=== PATIENT | female | born 1965 | race Caucasian/White ===

== ENCOUNTER 2017-02-18 13:14 | Emergency (ER) | payer BC, OTHER ==
[2017-02-18 13:18] VITALS: BP 130/69; PULSE 88; TEMP 98.2; BMI 31.1
--- NOTE | 2017-02-18 13:49 | PDOC ---
History of Present Illness - General Chief Complaint: Back Pain Stated Complaint: BACK PAIN Time Seen by Provider: 02/18/17 13:47 History Source: Patient Exam Limitations: No Limitations - History of Present Illness Initial Comments: 02/18/17 14:23 Chief complaint: Lower back pain History of present illness: Patient is a 51-year-old female with a history of gastric ulcers here today complaining of worsening lower back pain that started on 02/15/2017 and has worsened. Patient reports that she went to [facility] on was given Tylenol which has not helped with pain. Patient denies doing any heavy lifting or any strenuous activities that might have caused her back pain. 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 Patient reports that pain is worse when walking or getting up from a seated or lying position. It is improved with sitting still. Patient has not taken anything for pain today. Patient reports the pain is a aching sensation in lower back with no radiation down legs or any incontinency or any saddle anesthesia. She denies any urinary symptoms of hematuria, frequency or urgency or dysuria. She reports the pain is an 8 out of 10 when getting up from seated or lying position. 02/18/17 23:08 Occurred: reports: other (4 days ) Severity: reports: moderate Pain Location: reports: back (lower ) Method of Injury: Yes: unknown Modifying Factors: improves with: immobilization Loss of Consciousness: no loss of consciousness Associated Symptoms (Fall): muscle spasms (lower back when getting up from a seated position or lying), trouble walking Past History - Past Medical History Allergies/Adverse Reactions: Allergies Allergy/AdvReac Type Severity Reaction Status Date / Time cimetidine [From Tagamet] Allergy Swelling Verified 02/18/17 13:18 cimetidine HCl [From Tagamet] Allergy Swelling Verified 02/18/17 13:18 Home Medications: Ambulatory Orders Pantoprazole Sodium [Protonix] 40 mg PO DAILY #30 tablet. 05/19/16 Acetaminophen [Tylenol .Extra-Strength -] 1,000 mg PO Q12H PRN #14 tablet Cyclobenzaprine HCl [Flexeril 10 mg] 10 mg PO Q8H PRN #21 tablet 02/18/17 Oxycodone HCl/Acetaminophen [Percocet 5-325 mg Tablet] 1 tab PO Q8H PRN #6 tablet MDD 3 02/18/17 Asthma: Yes GI Disorders: Yes (hep c) Suicide Attempt (Hx): No - Immunization History Immunization Up to Date: Yes - Psycho/Social/Smoking Cessation Hx Anxiety: No Suicidal Ideation: No Smoking History: Never smoked Have you smoked in the past 12 months: No Information on smoking cessation initiated: No Hx Alcohol Use: No Drug/Substance Use Hx: No Substance Use Type: None Review of Systems - Review of Systems Able to Perform ROS?: Yes Constitutional: No: Symptoms Reported HEENTM: No: Symptoms Reported Respiratory: No: Symptoms reported Cardiac (ROS): No: Symptoms Reported ABD/GI: No: Symptoms Reported : No: Symptoms Reported Musculoskeletal: Yes: Back Pain (b/l lumbar) Integumentary: No: Symptoms Reported Neurological: No: Symptoms reported *Physical Exam - Vital Signs Last Vital Signs Temp Pulse Resp BP Pulse Ox 98.2 F 88 18 130/69 99 02/18/17 13:16 02/18/17 13:16 02/18/17 13:16 02/18/17 13:16 02/18/17 13:16 - Physical Exam General Appearance: Yes: Appropriately Dressed Respiratory/Chest: positive: Lungs Clear, Normal Breath Sounds. negative: Chest Tender, Respiratory Distress Cardiovascular: positive: Regular Rhythm, Regular Rate, S1, S2 Gastrointestinal/Abdominal: positive: Normal Bowel Sounds, Soft. negative: Tender, Organomegaly, Distended, Guarding, Rebound, Tenderness, Hepatomegaly, Spleenomegaly Musculoskeletal: positive: Normal Inspection, Muscle Spasm (b/l lumbar). negative: CVA Tenderness, CVA Tenderness (R), CVA Tenderness (L), Decreased Range of Motion (from waist), Vertebral Tenderness Extremity: positive: Normal Capillary Refill, Normal Inspection, Normal Range of Motion Neurologic: positive: Motor Strength 5/5 (legs b/l ), Respond to painful stimul (legs ), Responsive, Other (negative SLR b/ll ). negative: Numbness, Sensory Deficit Deep Tendon Reflexes: Ankle (L): 3+, Ankle (R): 3+, Knee (L): 4+, Knee (R): 4+ Medical Decision Making - Medical Decision Making 02/18/17 14:25 Patient is a 51-year-old female with a history of gastric ulcers here today complaining of worsening lower back pain that started on 02/15/2017 and has worsened. Patient reports that she went to [facility] on or 2016 was given Tylenol which has not helped with pain. Patient denies doing any heavy lifting or any strenuous activities that might have caused her back pain. 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 Patient reports that pain is worse when walking or getting up from a seated or lying position. It is improved with sitting still. Patient has not taken anything for pain today. Patient reports the pain is a aching sensation in lower back with no radiation down legs or any incontinency or any saddle anesthesia. She denies any urinary symptoms of hematuria, frequency or urgency or dysuria. She reports the pain is an 8 out of 10 when getting up from seated or lying position. Pt. is a driving Lower back pain with muscle spasm PLAN: toradol 60 mg IM xray lumbar/spinal no acute abnormality, no evidence of compression deformities , spondylithesis. Developmental changes are seen at L5 - S1. per Dr. Caraballo follow up with ortho cane given Flexeril 10 mg q 8 hr prn muscle spasm tylenol 1000 mg q 12 hr prn pain percocet 5mg/325 mg po every 8 hrs prn severe pain # 6 tabs 02/18/17 16:00 *DC/Admit/Observation/Transfer Diagnosis at time of Disposition: Low back pain Qualifiers: Chronicity: unspecified Back pain laterality: bilateral Sciatica presence: without sciatica Qualified Code(s): M54.5 - Low back pain - Discharge Dispostion Disposition: HOME Condition at time of disposition: Stable - Prescriptions Prescriptions: Cyclobenzaprine HCl [Flexeril 10 mg] 10 mg PO Q8H PRN #21 tablet PRN Reason: Muscle Spasms Oxycodone HCl/Acetaminophen [Percocet 5-325 mg Tablet] 1 tab PO Q8H PRN #6 tablet MDD 3 PRN Reason: Severe Pain Acetaminophen [Tylenol .Extra-Strength -] 1,000 mg PO Q12H PRN #14 tablet PRN Reason: Pain - Referrals Referrals: STAFF,NOT ON [Primary Care Provider] - Dalton Wolf MD [Staff Physician] - - Patient Instructions Additional Instructions: Avoid any strenuous activities or exercise Follow-up with orthopedist as soon as possible for further evaluation Use Cane for ambulation Return to emergency room if symptoms worsen any numbness of legs or groin or worsening pain Patient voiced understanding of discharge instructions - Post Discharge Activity Work/School Note: Back to Work
[2017-02-18] MEDS ORDERED: KETOROLAC TROMETHAMINE 60 MG/2 ML VIAL IM ONE (14:18)
[2017-02-18] MEDS ORDERED: KETOROLAC TROMETHAMINE 60 MG/2 ML VIAL ONE (14:21)
[2017-02-18 14:49] LABS: URINE APPEARANCE CLEAR; URINE BILIRUBIN NEGATIVE (NEGATIVE); URINE COLOR LTYELLOW; URINE GLUCOSE (UA) NEGATIVE (NEGATIVE); URINE KETONE NEGATIVE (NEGATIVE); URINE NITRITE NEGATIVE (NEGATIVE); URINE PROTEIN NEGATIVE (NEGATIVE); URINE UROBILINOGEN NEGATIVE E.U./dl (0.2-1.0)
[2017-02-18 14:53] LABS: URINE BLOOD 1+ (NEGATIVE); URINE LEUK ESTERASE TRACE (NEGATIVE)
[2017-02-18 15:12] LABS: URINE RBC 2 /hpf (0-3); URINE WBC 2 /hpf (3-5)
== END 2017-02-18 16:29 | disposition home or self-care (01) ==
LOC: JERFT 13:14
PROC: 3E0233Z Introduction of Anti-inflammatory into Muscle, Percutaneous Approach (ICD-10-PCS; principal; 2017-02-18)
DX: M54.5 Low back pain (principal); J45.909 Unspecified asthma, uncomplicated; B18.2 Chronic viral hepatitis C; Z87.19 Personal history of other diseases of the digestive system
CPT/HCPCS: 72100-TC; 81003; 81015; 99281-25

== ENCOUNTER 2017-04-24 10:12 | Emergency (ER) | payer BC, OTHER ==
[2017-04-24 10:24] VITALS: TEMP 98; BMI 28.9
--- NOTE | 2017-04-24 10:44 | PDOC ---
History of Present Illness - General History Source: Patient Exam Limitations: No Limitations - History of Present Illness Initial Comments: 04/24/17 10:45 Patient is a 51 yo F with PMH of gastric ulcers, asthma, Hep C, who presents epigastric pain, identical to her complaints on several prior recent visits. Patient states that she has an endoscopy a year ago that showed gastritis as an explanation for her long standing epigastric pain of several years. She was last prescribed maalox and protonix 40 po d a few mo ago but she ran out of the PPI 3 w ago. Since then, her abd pain worsened and she developed nausea with 2 episodes of NBNB vomiting yesterday. She also complains of one episode of watery, nonbloody, nonmelenous diarrhea yesterday. She has not f/u with her PCP or GI due to apt unavailability. She denies f/c, chest pain, h/a, sob, cough, hemoptysis, extremity pain or edema. She reports intentional weight loss of 12 lb over 5 mo. 04/24/17 12:16 04/24/17 12:24 04/24/17 12:33 04/24/17 12:56 <Tatyana Oseguera - Last Filed: 04/24/17 12:56> <Gricel Bryant - Last Filed: 04/24/17 13:43> - General Chief Complaint: Pain Stated Complaint: STOMACH PAIN Past History - Past Medical History Asthma: Yes GI Disorders: Yes (hep c/gastritis) Suicide Attempt (Hx): No - Immunization History Immunization Up to Date: Yes - Psycho/Social/Smoking Cessation Hx Anxiety: No Suicidal Ideation: No Smoking History: Never smoked Have you smoked in the past 12 months: No Information on smoking cessation initiated: No Hx Alcohol Use: No Drug/Substance Use Hx: No Substance Use Type: None <Tatyana Oseguera - Last Filed: 04/24/17 12:56> <Gricel Bryant - Last Filed: 04/24/17 13:43> - Past Medical History Allergies/Adverse Reactions: Allergies Allergy/AdvReac Type Severity Reaction Status Date / Time cimetidine [From Tagamet] Allergy Swelling Verified 04/24/17 10:21 cimetidine HCl [From Tagamet] Allergy Swelling Verified 04/24/17 10:21 Home Medications: Ambulatory Orders Pantoprazole Sodium [Protonix] 40 mg PO DAILY #30 tablet. 05/19/16 Review of Systems - Review of Systems Able to Perform ROS?: Yes Is the patient limited Slovenian proficient: No Constitutional: No: Chills, Fever HEENTM: No: Nose Congestion, Throat Pain Respiratory: No: Cough, Orthopnea, Shortness of Breath, Hemoptysis Cardiac (ROS): No: Chest Pain, Edema, Irregular Heart Rate, Lightheadedness, Palpitations, Syncope ABD/GI: Yes: Diarrhea, Nausea, Vomiting. No: Abdominal Distended, Difficulty Swallowing, Poor Fluid Intake, Rectal Bleeding, Abdominal cramping, Tarry Stools : No: Dysuria, Flank Pain Musculoskeletal: No: Back Pain, Joint Pain Integumentary: No: Bruising, Pruritus, Rash Neurological: No: Headache, Numbness, Paresthesia Psychiatric: No: Anxiety, Depression Endocrine: No: Unexplained Weight Loss Hematologic/Lymphatic: No: Anemia, Blood Clots, Easy Bleeding, Easy Bruising All Other Systems: Reviewed and Negative <Tatyana Oseguera - Last Filed: 04/24/17 12:56> *Physical Exam - Vital Signs Last Vital Signs Temp Pulse Resp BP Pulse Ox 98.0 F 75 18 130/77 100 04/24/17 10:22 04/24/17 10:22 04/24/17 10:22 04/24/17 10:22 04/24/17 10:22 - Physical Exam Comments: 04/24/17 12:24 General: mild distress, AAOx3 HEENT: atraumatic, normocephalic, perrla eomi, sclera anicteric, conjunctiva clear CV: RRR S1S2 Pulm: cta b/l GI: moderate epigastric pain, no guarding, no rebound, no mass, reduced bowel sounds. Extremities: no edema Neuro: CN II-XII grossly intact <Tatyana Oseguera - Last Filed: 04/24/17 12:56> - Vital Signs Last Vital Signs Temp Pulse Resp BP Pulse Ox 98.0 F 69 16 114/71 97 04/24/17 10:22 04/24/17 13:36 04/24/17 13:36 04/24/17 13:36 04/24/17 13:36 <Gricel Bryant - Last Filed: 04/24/17 13:43> Heart Score/ECG Review #1 General ECG Interpretation: Sinus Rhythm, Normal Rate, Normal Intervals, No acute ischemic changes <Tatyana Oseguera - Last Filed: 04/24/17 12:56> ED Treatment Course - LABORATORY CBC & Chemistry Diagram: 04/24/17 11:11 04/24/17 11:11 <Tatyana Oseguera - Last Filed: 04/24/17 12:56> - LABORATORY CBC & Chemistry Diagram: 04/24/17 11:11 04/24/17 11:11 - ADDITIONAL ORDERS Additional order review: Laboratory Results 04/24/17 04/24/17 04/24/17 11:11 11:11 11:11 Sodium 141 Potassium 4.0 Chloride 104 Carbon Dioxide 29 Anion Gap 8 BUN 15 D Creatinine 0.6 Creat Clearance w eGFR > 60 Random Glucose 108 H Calcium 9.4 Total Bilirubin 0.3 D AST 19 D ALT 23 Alkaline Phosphatase 101 Creatine Kinase 140 Troponin I < 0.02 Total Protein 8.4 H Albumin 4.1 Lipase 230 Serum , Qual Negative 04/24/17 11:11 RBC 5.21 H MCV 89.0 MCHC 33.5 RDW 13.5 MPV 8.0 Neutrophils % 80.1 Lymphocytes % 14.9 D Monocytes % 4.3 Eosinophils % 0.3 Basophils % 0.4 - Medications Given in the ED: ED Medications Discontinued Medications Generic Name Dose Route Start Last Admin Trade Name Freq PRN Reason Stop Dose Admin Al Hydroxide/Mg Hydroxide 30 ml 04/24/17 10:59 04/24/17 11:43 Mylanta Oral Suspension - PO 04/24/17 11:00 30 ml ONCE ONE Administration Pantoprazole Sodium 40 mg/ 100 mls @ 200 mls/hr 04/24/17 10:59 04/24/17 11:44 Sodium Chloride IVPB 04/24/17 11:28 200 mls/hr ONCE ONE Administration Ondansetron HCl 4 mg 04/24/17 10:59 04/24/17 11:44 Zofran Injection IVPUSH 04/24/17 11:00 4 mg ONCE ONE Administration <Gricel Bryant - Last Filed: 04/24/17 13:43> Medical Decision Making - Medical Decision Making 04/24/17 12:28 Patient presents with clinical picture most consistent with gastritis exacerbation due to cessation of PPI therapy r/o infection, ulcer perforation abscess, acs, other intraabdominal pathology EKG, cbc diff, cmp, lipase, serum , cxr -EKG unremarkable. -labs unremarkable - negative 04/24/17 12:29 04/24/17 12:56 CXR unremarkable patient stable for d/c. ppi prescribed. urged to follow up with PCP and GI ramses , especially before prescription runs out <Tatyana Oseguera - Last Filed: 04/24/17 12:56> *DC/Admit/Observation/Transfer - Discharge Dispostion Admit: No <Tatyana Oseguera - Last Filed: 04/24/17 12:56> <Gricel Bryant - Last Filed: 04/24/17 13:43> Diagnosis at time of Disposition: Gastritis - Discharge Dispostion Disposition: HOME Condition at time of disposition: Good - Referrals Referrals: Cornelio Doe MD [Staff Physician] - - Patient Instructions Printed Discharge Instructions: Gastritis Additional Instructions: your stomach pain is caused by gastritis. We prescribed you a month supply of protonix. 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 Return to ER if symptoms worsen. - Post Discharge Activity Work/School Note: Back to Work
[2017-04-24] MEDS ORDERED: PANTOPRAZOLE SODIUM 40 MG in SODIUM CHLORIDE 100 ML IVPB ONE (10:59)
[2017-04-24] MEDS ORDERED: ONDANSETRON 4 MG/2 ML VIAL IVPUSH ONE (10:59)
[2017-04-24] MEDS ORDERED: MAG HYDROX/AL HYDROX/SIMETH 30 ML UNIT-DOSE CUP PO ONE (10:59)
[2017-04-24] MEDS ORDERED: PANTOPRAZOLE SODIUM 100 ML IVPB ONE (11:23)
[2017-04-24] MEDS ORDERED: MAG HYDROX/AL HYDROX/SIMETH 30 ML UNIT-DOSE CUP ONE (11:23)
[2017-04-24] MEDS ORDERED: ONDANSETRON 4 MG/2 ML VIAL ONE (11:23)
--- NOTE | 2017-04-24 11:25 | PDOC ---
Attending Attestation - Resident Resident Name: Tatyana Oseguera - ED Attending Attestation I have performed the following: I have examined & evaluated the patient, The case was reviewed & discussed with the resident, I agree w/resident's findings & plan, Exceptions are as noted - HPI HPI: 04/24/17 11:18 This is a 51 yo F with a history of gastritis, recurrent ER presentations for abdominal pain, nausea, vomiting, diarrhea Pt was seen by PMD and was asked to follow up with GI Pt presents today with a complaint of abdominal pain Pt states she had these symptoms for the past 3 days (+) nausea, vomiting No fevers or chills No change in diet Plan is for endoscopy in 04/24/17 12:06 - Physicial Exam PE: 04/24/17 12:24 Epigastric tenderness to palpation No involuntary guarding and rebound No RUQ tenderness - Medical Decision Making 04/24/17 12:25 Will do labs Will do Zofran, protonix, maalox Will do EKG Will re assess 04/24/17 12:57 Laboratory Tests 04/24/17 04/24/17 04/24/17 11:11 11:11 11:11 WBC 5.8 Hgb 15.5 H Hct 46.4 H Plt Count 242 BUN 15 D Creatinine 0.6 Creatine Kinase 140 Troponin I < 0.02 Lipase 230 D/c home refill Protonix Follow up with GI for endoscopy
[2017-04-24 11:47] LABS: BASOPHIL 0.4 % (0-2.0); EOSINOPHIL 0.3 % (0-4.5); MCH 29.8 pg (25.7-33.7); MCHC 33.5 g/dl (32.0-36.0); NEUTROPHILS 80.1 % (42.8-82.8); PLATELET COUNT 242 K/MM3 (134-434); RDW 13.5 % (11.6-15.6); WHITE BLOOD COUNT 5.8 K/mm3 (4.0-10.0)
[2017-04-24 12:15] LABS: ALBUMIN 4.1 g/dl (3.4-5.0); ALK PHOS 101 U/L (45-117); ANION GAP 8 (8-16); BILIRUBIN,TOTAL 0.3 mg/dL (0.2-1.0); CALCIUM 9.4 mg/dL (8.5-10.1); CO2 29 mmol/L (21-32); CREATININE 0.6 mg/dL (0.55-1.02); GLUCOSE,RANDOM 108 mg/dL (74-106); SGOT/AST 19 U/L (15-37); SGPT/ALT 23 U/L (12-78); TOT PROT 8.4 g/dl (6.4-8.2)
[2017-04-24 12:18] LABS: TROPONIN I < 0.02 ng/ml (0.00-0.05)
[2017-04-24 13:37] VITALS: BP 114/71; PULSE 69
--- NOTE | 2017-04-26 22:02 | EKG ---
Test Reason : Blood Pressure : / mmHG Vent. Rate : 068 BPM Atrial Rate : 068 BPM P-R Int : 184 ms QRS Dur : 092 ms QT Int : 412 ms P-R-T Axes : 050 020 022 degrees QTc Int : 438 ms NORMAL SINUS RHYTHM CANNOT RULE OUT ANTERIOR INFARCT , AGE UNDETERMINED ABNORMAL ECG WHEN COMPARED WITH ECG OF 19-MAY-2016 12:10, NO SIGNIFICANT CHANGE WAS FOUND Confirmed by JEANNETTE GONZALEZ MD ([id number]) on 04/26/2017 10:01:48 PM Referred By: Confirmed By:JEANNETTE GONZALEZ MD
== END 2017-04-24 13:48 | disposition home or self-care (01) ==
LOC: JER 10:12
PROC: 3E033GC Introduction of Other Therapeutic Substance into Peripheral Vein, Percutaneous Approach (ICD-10-PCS; principal; 2017-04-24)
PROC: 3E033GC Introduction of Other Therapeutic Substance into Peripheral Vein, Percutaneous Approach (ICD-10-PCS; 2017-04-24)
DX: K29.60 Other gastritis without bleeding (principal); J45.909 Unspecified asthma, uncomplicated; B18.2 Chronic viral hepatitis C; Z87.19 Personal history of other diseases of the digestive system
CPT/HCPCS: 36415; 71010-TC; 80053; 82550; 83690; 84484; 84703; 85025; 93005; 93010; 99283-25

== ENCOUNTER 2018-03-02 08:53 | Emergency (ER) | payer BC, OTHER ==
[2018-03-02 08:59] VITALS: BP 140/91; PULSE 77; TEMP 98.3; BMI 28.7
[2018-03-02] MEDS ORDERED: ACETAMINOPHEN 500 MG TABLET (FP) PO ONE (09:14)
[2018-03-02] MEDS ORDERED: ASPIRIN 81 MG CHEWABLE TABLETS PO ONE (09:14)
[2018-03-02] MEDS ORDERED: ASPIRIN 81 MG CHEWABLE TABLETS ONE (09:27)
[2018-03-02] MEDS ORDERED: ACETAMINOPHEN 325 MG TABLET (FP) ONE (09:28)
[2018-03-02 09:48] LABS: BASO % 0.8 % (0-2.0); HEMATOCRIT 42.7 % (32.4-45.2); HEMOGLOBIN 14.5 GM/dL (10.7-15.3); LYMPH % 44.8 % (8-40); MCH 30.4 pg (25.7-33.7); MEAN CELL VOLUME 89.3 fl (80-96); MEAN PLT VOLUME 7.5 fl (7.5-11.1); NEUT % 45.4 % (42.8-82.8); PLATELET COUNT 274 K/MM3 (134-434); RBC 4.78 M/mm3 (3.60-5.2); RDW 13.6 % (11.6-15.6); WHITE BLOOD COUNT 3.6 K/mm3 (4.0-10.0)
[2018-03-02 09:56] LABS: INR 0.96 (0.82-1.09); PROTHROMBIN TIME (PATIENT) 10.9 SEC (9.7-13.0)
[2018-03-02 09:58] LABS: URINE APPEARANCE SLCLOUDY; URINE BILIRUBIN NEGATIVE (<2.0 mg/dL); URINE BLOOD 1+ (NEGATIVE); URINE COLOR YELLOW; URINE GLUCOSE (UA) NEGATIVE (NEGATIVE); URINE KETONE NEGATIVE (NEGATIVE); URINE LEUK ESTERASE NEGATIVE (NEGATIVE); URINE NITRITE NEGATIVE (NEGATIVE); URINE PROTEIN NEGATIVE (NEGATIVE); URINE UROBILINOGEN NEGATIVE mg/dL (0.2-1.0)
[2018-03-02 10:01] LABS: EPI CELLS FEW /HPF (FEW); URINE BACTERIA RARE /hpf (NONE SEEN); URINE MUCUS RARE
[2018-03-02 10:05] LABS: ALBUMIN 3.6 g/dl (3.4-5.0); ANION GAP 3 (8-16); BILIRUBIN,TOTAL 0.2 mg/dL (0.2-1.0); BLOOD UREA NITROGEN 16 mg/dL (7-18); CALCIUM 8.9 mg/dL (8.5-10.1); CHLORIDE 107 mmol/L (98-107); CO2 30 mmol/L (21-32); CREATININE 0.6 mg/dL (0.55-1.02); GLUCOSE,RANDOM 106 mg/dL (74-106); MAGNESIUM 2.2 mg/dL (1.8-2.4); POTASSIUM 4.1 mmol/L (3.5-5.1); SGOT/AST 13 U/L (15-37); SGPT/ALT 16 U/L (12-78); SODIUM 140 mmol/L (136-145); TOT PROT 7.2 g/dl (6.4-8.2)
[2018-03-02 10:08] LABS: ALK PHOS 93 U/L (45-117)
--- NOTE | 2018-03-02 10:27 | PDOC ---
History of Present Illness - General Chief Complaint: Chest Pain Stated Complaint: CHEST PAIN Time Seen by Provider: 03/02/18 09:03 History Source: Patient Exam Limitations: No Limitations - History of Present Illness Initial Comments: 03/02/18 09:53 52-year-old female with history of GERD presents [facility] ED with complaints of intermittent palpitations for the past 2-3 days without associated factors until last night when she states was sitting watching TV and had a few seconds of palpitations followed by shortness of breath and left-sided chest pain which she describes as an aching pressure. Patient states chest pain has been intermittent since and palpitations remain intermittent with the last episode while waiting in the waiting area to be triage. Patient denies shortness of breath presently, dizziness, nausea, Lotrimin edema, recent travel, recent illness, thyroid disorders, smoking history, familial cardiac history, or cardiac workup previously. Presenting Symptoms: Chest Pain Timing/Duration: reports: intermittent Severity/Quality: reports: moderate, aching, pressure Location: reports: substernal Chest Pain Radiation: reports: no radiation Activities at Onset: reports: none Prior Chest Pain/Cardiac Workup: reports: No prior chest pain Nitro Today/Relief: Yes: no nitro taken today Aspirin Received prior to arrival (Core Measure): Yes: 81 mg x 2, provided by ED Beta Donald given by EMS (Core Measure): No Beta Donald taken at Home (Core Measure): No Beta Donald indicated at this time? (Core Measure): No Associated Symptoms: Yes: Chest Pain/pressure, Palpitations Past History - Past Medical History Allergies/Adverse Reactions: Allergies Allergy/AdvReac Type Severity Reaction Status Date / Time cimetidine [From Tagamet] Allergy Swelling Verified 03/02/18 08:55 cimetidine HCl [From Tagamet] Allergy Swelling Verified 03/02/18 08:55 Home Medications: Ambulatory Orders Pantoprazole Sodium [Protonix] 40 mg PO DAILY #30 tablet. 05/19/16 Omeprazole 20 mg PO DAILY #30 capsule. 04/24/17 Pantoprazole Sodium [Protonix -] 40 mg PO DAILY #30 tablet. 04/24/17 Asthma: Yes COPD: No GI Disorders: Yes (hep c/gastritis) - Immunization History Immunization Up to Date: Yes - Suicide/Smoking/Psychosocial Hx Smoking History: Never smoked Have you smoked in the past 12 months: No Hx Alcohol Use: No Drug/Substance Use Hx: No Substance Use Type: None Patient Lives Alone: No Lives with/in: spouse/SO Cardiac Specific PMH - Complaint Specific PMHX GERD: Yes Review of Systems - Review of Systems Able to Perform ROS?: No Constitutional: No: Symptoms Reported HEENTM: No: Symptoms Reported Respiratory: Yes: SOB with Exertion Cardiac (ROS): Yes: Chest Pain, Palpitations ABD/GI: No: Symptoms Reported : No: Symptoms Reported Musculoskeletal: No: Symptoms Reported Integumentary: No: Symptoms Reported Neurological: No: Symptoms reported Endocrine: No: Symptoms Reported *Physical Exam - Vital Signs Last Vital Signs Temp Pulse Resp BP Pulse Ox 98.3 F 77 16 140/91 99 03/02/18 08:56 03/02/18 08:56 03/02/18 08:56 03/02/18 08:56 03/02/18 08:56 - Physical Exam General Appearance: Yes: Nourished, Appropriately Dressed. No: Apparent Distress HEENT: positive: EOMI, CHERY. negative: Pale Conjunctivae Neck: positive: Supple Respiratory/Chest: positive: Chest Tender (left chest wall to anterior region at 3-5th ribs from sternum to lateral of mcl. ), Lungs Clear, Normal Breath Sounds. negative: Respiratory Distress, Accessory Muscle Use Cardiovascular: positive: Regular Rhythm, Regular Rate. negative: Murmur Gastrointestinal/Abdominal: positive: Soft. negative: Tenderness Extremity: positive: Normal Capillary Refill. negative: Pedal Edema Integumentary: positive: Normal Color, Warm, Moist. negative: Rash Neurologic: positive: Motor Strength 5/5 (ambulatory) Heart Score/ECG Review - History History: Slightly suspicious - Electrocardiogram EKG: Normal - Age Age: 45-65 - Risk Factors Based on the list above the patient has:: No risk factors known - Troponin Troponin: </= normal limit - Score Heart Score - Total: 1 #2 ECG reviewed & interpreted by me at: 13:10 General ECG Interpretation: Sinus Rhythm Compared to previous ECG there are: No significant change (rate 67 normal sinus rhythm.Intervals are regular) - ECG Intrepretation Rhythm: Regular Rhythm (Rate 76. Sinus rhythm. Intervals are regular. No ST elevation or depression.) ED Treatment Course - LABORATORY CBC & Chemistry Diagram: 03/02/18 09:40 03/02/18 09:40 - ADDITIONAL ORDERS Additional order review: Laboratory Results 03/02/18 03/02/18 03/02/18 12:15 09:50 09:40 PT with INR INR Sodium Potassium Chloride Carbon Dioxide Anion Gap BUN Creatinine Creat Clearance w eGFR Random Glucose Calcium Magnesium Total Bilirubin AST ALT Alkaline Phosphatase Creatine Kinase 114 Troponin I < 0.02 Total Protein Albumin TSH 3.78 H Urine Color Yellow Urine Appearance Slcloudy Urine pH 5.0 Ur Specific [place] 1.019 Urine Protein Negative Urine Glucose (UA) Negative Urine Ketones Negative Urine Blood 1+ H Urine Nitrite Negative Urine Bilirubin Negative Urine Urobilinogen Negative Ur Leukocyte Esterase Negative Urine WBC (Auto) 3 Urine RBC (Auto) 1 Ur Epithelial Cells Few Urine Bacteria Rare Urine Mucus Rare 03/02/18 03/02/18 09:40 09:40 PT with INR 10.90 INR 0.96 Sodium 140 Potassium 4.1 Chloride 107 Carbon Dioxide 30 Anion Gap 3 L BUN 16 Creatinine 0.6 Creat Clearance w eGFR > 60 Random Glucose 106 Calcium 8.9 Magnesium 2.2 Total Bilirubin 0.2 D AST 13 L ALT 16 Alkaline Phosphatase 93 Creatine Kinase 121 Troponin I < 0.02 Total Protein 7.2 Albumin 3.6 TSH Urine Color Urine Appearance Urine pH Ur Specific [place] Urine Protein Urine Glucose (UA) Urine Ketones Urine Blood Urine Nitrite Urine Bilirubin Urine Urobilinogen Ur Leukocyte Esterase Urine WBC (Auto) Urine RBC (Auto) Ur Epithelial Cells Urine Bacteria Urine Mucus 03/02/18 09:40 RBC 4.78 MCV 89.3 MCHC 34.0 RDW 13.6 MPV 7.5 Neutrophils % 45.4 D Lymphocytes % 44.8 H D Monocytes % 7.0 Eosinophils % 2.0 D Basophils % 0.8 - RADIOLOGY Radiology Studies Ordered: Category Date Time Status CHEST X-RAY PORTABLE* [RAD] Stat Radiology 03/02/18 09:05 Completed - Medications Given in the ED: ED Medications Discontinued Medications Generic Name Dose Route Start Last Admin Trade Name Freq PRN Reason Stop Dose Admin Acetaminophen 975 mg 03/02/18 09:14 03/02/18 09:30 Tylenol - PO 03/02/18 09:15 975 mg ONCE ONE Administration Aspirin 162 mg 03/02/18 09:14 03/02/18 09:30 Asa - PO 03/02/18 09:15 162 mg ONCE ONE Administration Medical Decision Making - Medical Decision Making 03/02/18 09:56 chief complaint: Intermittent palpitations 3 days intermittent chest pressure last night at 8 PM On exam patient had reproducible chest pain to the left chest wall Differential diagnoses to include ACS, thyroid disorder, arrhythmia electrolyte derangement, musculoskeletal pain. Cardiac workup , TSH, and Tylenol ordered. Patient also ordered for 2 baby aspirin. Will contact patient's primary care physician Dr. Candace Clarke 03/02/18 11:00 Laboratory Tests 03/02/18 03/02/18 03/02/18 09:40 09:40 09:40 WBC 3.6 L D Hgb 14.5 Hct 42.7 Plt Count 274 Neutrophils % 45.4 D Lymphocytes % 44.8 H D PT with INR 10.90 INR 0.96 Sodium 140 Potassium 4.1 Chloride 107 Carbon Dioxide 30 Anion Gap 3 L BUN 16 Creatinine 0.6 Random Glucose 106 Calcium 8.9 Magnesium 2.2 AST 13 L ALT 16 Troponin I < 0.02 TSH Urine Blood Ur Leukocyte Esterase Urine WBC (Auto) 03/02/18 03/02/18 09:40 09:50 WBC Hgb Hct Plt Count Neutrophils % Lymphocytes % PT with INR INR Sodium Potassium Chloride Carbon Dioxide Anion Gap BUN Creatinine Random Glucose Calcium Magnesium AST ALT Troponin I TSH 3.78 H Urine Blood 1+ H Ur Leukocyte Esterase Negative Urine WBC (Auto) 3 Called and spoke to the nurse band manager at Dr. Candace Clarke's office was able to move her appointment up to at [address] Clarke. She is also recommended Dr. Mora, bus repair supervisor for patient to follow-up with. Patient states pain improved with Tylenol. 03/02/18 11:23 Chest x-ray with comparison to 05/19/2016 shows a borderline to mildly enlarged heart. Patient also elevated TSH and will receive copy of labs take with her to her doctor on . patient currently asymptomatic. No reproducible chest pain on exam 03/02/18 13:21 Laboratory Tests 03/02/18 12:15 Creatine Kinase 114 Troponin I < 0.02 Pt remains asymptomatic. Patient will be discharged home. *DC/Admit/Observation/Transfer Diagnosis at time of Disposition: Chest pain - Discharge Dispostion Disposition: HOME Condition at time of disposition: Improved - Referrals Referrals: Candace Woody [Primary Care Provider] - - Patient Instructions Printed Discharge Instructions: DI for Atypical Chest Pain, DI for Musculoskeletal Pain, DI for Palpitations Additional Instructions: Please call [phone] which is the number for Dr. Mora as recommended by your primary care physician. Take Tylenol for discomfort. You may also follow-up with Dr. Parikh at [phone] Please take copy of your labs with you as your thyroid level is elevated here today. - Post Discharge Activity
--- NOTE | 2018-03-02 11:41 | EKG ---
Test Reason : Blood Pressure : / mmHG Vent. Rate : 076 BPM Atrial Rate : 076 BPM P-R Int : 186 ms QRS Dur : 082 ms QT Int : 386 ms P-R-T Axes : 067 026 041 degrees QTc Int : 434 ms NORMAL SINUS RHYTHM POSSIBLE LEFT ATRIAL ENLARGEMENT BORDERLINE ECG WHEN COMPARED WITH ECG OF 24-APR-2017 11:12, NO SIGNIFICANT CHANGE WAS FOUND Confirmed by Angel Man ([id number]) on 03/02/2018 11:41:00 AM Referred By: Confirmed By:Angel Man
--- NOTE | 2018-03-03 10:27 | EKG ---
Test Reason : Blood Pressure : / mmHG Vent. Rate : 067 BPM Atrial Rate : 067 BPM P-R Int : 192 ms QRS Dur : 086 ms QT Int : 412 ms P-R-T Axes : 060 008 017 degrees QTc Int : 435 ms NORMAL SINUS RHYTHM POSSIBLE LEFT ATRIAL ENLARGEMENT CANNOT RULE OUT ANTERIOR INFARCT , AGE UNDETERMINED ABNORMAL ECG WHEN COMPARED WITH ECG OF 02-MAR-2018 09:01, NO SIGNIFICANT CHANGE WAS FOUND Confirmed by MARION MURPHY, ERNESTINA ([id number]) on 03/03/2018 10:26:54 AM Referred By: Confirmed By:ERNESTINA SCHULTZ MD
== END 2018-03-02 13:43 | disposition home or self-care (01) ==
LOC: JER 08:53
DX: R07.9 Chest pain, unspecified (principal); J45.909 Unspecified asthma, uncomplicated; B19.20 Unspecified viral hepatitis C without hepatic coma
CPT/HCPCS: 36415; 71045-TC-FY; 80053; 81003; 81015; 82550; 83735; 84443; 84484; 85025; 85610; 93005; 93010; 99283-25

== ENCOUNTER 2018-12-02 11:53 | Emergency (ER) | payer BC, OTHER ==
[2018-12-02 12:12] VITALS: BP 111/70; PULSE 70; TEMP 98.1; BMI 30.2
--- NOTE | 2018-12-02 12:33 | PDOC ---
History of Present Illness - General Chief Complaint: Palpitations Stated Complaint: PALPITATIONS Time Seen by Provider: 12/02/18 12:13 History Source: Patient Exam Limitations: Language Barrier - History of Present Illness Initial Comments: 53 yo F w a pmh of asthma, GERD, PUD, gastritis, Hep C presents to the ER after 3 days of on and off palpitations and chest discomfort. She had an episode of left sided chest pain this morning which prompted her to come into the ER. She states the chest pain episode this morning was on her left side of the chest, rated 8/10, felt like someone was squeezing her chest and was associated with mild shortness of breath and some left arm numbness. The chest pressure was not associated with any nausea, vomiting, or diaphoresis and the pain did not radiate to her jaw or back. She did not take any medications for the pain. The chest pain came on while the patient was at rest and sitting down. She reports that for the past few months she has been very cautious when doing physical activity because she knows she gets tired quickly. She states that her PCP referred her to a valving machine operator but she never followed through with it because the wait at [facility] was too long. She denies any recent fevers, chills, infections, headache, nausea, vomiting, diarrhea, constipation, leg/ankle swelling, blurry vision, syncope, or neck pain. PCP: Dr. Candace Clarke Psh: None reported Allergies: Cimetidine Social Hx: Denies smoking, drinking, or other substance usage. Beta Donald given by EMS (Core Measure): No Beta Donald taken at Home (Core Measure): No Past History - Past Medical History Allergies/Adverse Reactions: Allergies Allergy/AdvReac Type Severity Reaction Status Date / Time cimetidine [From Tagamet] Allergy Swelling Verified 12/02/18 12:08 cimetidine HCl [From Tagamet] Allergy Swelling Verified 12/02/18 12:08 Home Medications: Ambulatory Orders NK [No Known Home Medication] 12/02/18 Asthma: Yes COPD: No GI Disorders: Yes (hep c/gastritis) - Immunization History Immunization Up to Date: Yes - Suicide/Smoking/Psychosocial Hx Smoking History: Never smoked Have you smoked in the past 12 months: No Hx Alcohol Use: No Drug/Substance Use Hx: No Substance Use Type: None Cardiac Specific PMH - Complaint Specific PMHX GERD: Yes Review of Systems - Review of Systems Able to Perform ROS?: Yes Comments:: CONSTITUTIONAL: Absent: fever, no chills, no fatigue EYES: Absent: visual changes ENT: Absent: ear pain, no sore throat CARDIOVASCULAR: Present: Chest pain, palpitations RESPIRATORY: Present: SOB Absent: cough GI: Present: Abdominal pain Absent: no nausea, no vomiting, no constipation, no diarrhea GENITOURINARY: Absent: dysuria, no frequency, no hematuria MUSKULOSKELETAL: Absent: back pain, no arthralgia, no myalgia SKIN: Absent: rash NEURO: Absent: headache *Physical Exam - Vital Signs Last Vital Signs Temp Pulse Resp BP Pulse Ox 98.1 F 70 16 111/70 99 12/02/18 12:09 12/02/18 12:09 12/02/18 12:09 12/02/18 12:09 12/02/18 12:09 - Physical Exam Comments: GENERAL: Well-appearing, well-nourished. No apparent distress. HEENT: Normocephalic, atraumatic. PERRL, EOM intact. CARDIOVASCULAR: Normal S1, S2. Regular rate and rhythm. PULMONARY: Clear to auscultation bilaterally. ABDOMEN: Mild epigastric abdominal TTP. Soft, non-distended. EXTREMITIES: Normal ROM in all four extremities. No gross deformities. SKIN: Warm, dry. No rash NEUROLOGICAL: No focal neurological deficits. Moderate Sedation - Procedure Monitoring Vital Signs: Procedure Monitoring Vital Signs Temperature 98.1 F 12/02/18 12:09 Pulse Rate 70 12/02/18 12:09 Respiratory Rate 16 12/02/18 12:09 Blood Pressure 111/70 12/02/18 12:09 O2 Sat by Pulse Oximetry (%) 99 12/02/18 12:09 ED Treatment Course - LABORATORY CBC & Chemistry Diagram: 12/02/18 12:29 12/02/18 12:29 - ADDITIONAL ORDERS Additional order review: Laboratory Results 12/02/18 12/02/18 12:29 12:29 PT with INR 10.70 INR 0.91 Sodium 140 Potassium 4.3 Chloride 108 H Carbon Dioxide 26 Anion Gap 6 L BUN 15 Creatinine 0.5 L Creat Clearance w eGFR > 60 Random Glucose 94 Calcium 8.4 L Magnesium 2.4 Total Bilirubin 0.2 AST 22 ALT 25 Alkaline Phosphatase 87 Troponin I < 0.02 B-Natriuretic Peptide 12.3 Total Protein 6.9 Albumin 3.4 Lipase 615 H 12/02/18 12:29 RBC 4.54 MCV 90.3 MCHC 34.5 RDW 13.6 MPV 7.9 Neutrophils % 39.9 L Lymphocytes % 47.9 H Monocytes % 8.9 Eosinophils % 2.6 Basophils % 0.7 - RADIOLOGY Radiology Studies Ordered: Category Date Time Status CHEST PA & LAT [RAD] Stat Radiology 12/02/18 12:29 Completed ABDOMEN US -LIMITED [US] Stat Ultrasound 12/02/18 13:52 Completed - Medications Given in the ED: ED Medications Discontinued Medications Generic Name Dose Route Start Last Admin Trade Name Freq PRN Reason Stop Dose Admin Al Hydroxide/Mg Hydroxide 30 ml 12/02/18 12:53 12/02/18 13:26 Mylanta Suspension - PO 12/02/18 12:54 30 ml ONCE ONE Administration Sodium Chloride 1,000 ml 12/02/18 12:54 12/02/18 13:27 Normal Saline - IV 12/02/18 12:55 1,000 ml ONCE ONE Administration Medical Decision Making - Medical Decision Making 53 yo F w a pmh of asthma, GERD, PUD, gastritis, Hep C presents to the ER after 3 days of on and off palpitations and chest discomfort. DDx IBNLT: ACS/IN, Vasospastic angina, Angina, CHF, PNA, pneumothorax, PE, Arrhythmia, syncope, gastritis, GERD, PUD, pancreatitis Plan: Labs, trop x 2, EKG, CXR, echocardiogram, re-assess. VS WNL. EKG normal sinus - Acute arrhythmia unlikely. Echocardiogram performed: The patient's IVC is very collapsable. There is no pericardial effusion and good wall movement. CXR: Clear and no acute chest pathology - PNA and pneumothorax less likely. CBC, PT, INR unremarkable. Lipase is elevated at 615 concerning for pancreatitis. - Will obtain RUQ US. - RUQ US unremarkable. No gallbladder or pancreas abnormalities. DC patent on liquid diet for next 24-48 hours, arrange GI follow up, also get patient a valving machine operator. *DC/Admit/Observation/Transfer Diagnosis at time of Disposition: Pancreatitis - Discharge Dispostion Disposition: HOME Condition at time of disposition: Improved Decision to Admit order: No - Referrals Referrals: Candace Woody [Primary Care Provider] - Jack Saavedra MD [Staff Physician] - Alessio Fowler DO [Staff Physician] - - Patient Instructions Printed Discharge Instructions: Pancreatitis (Alternative Therapy), Acute Pancreatitis, Clear Liquid Diet, DI for Pancreatitis, Full Liquid Diet Additional Instructions: You came into the ER with stomach and chest discomfort. We looked at your blood work which had an elevated lipase hormone indicating you likely have pancreatitis - Please see attached handout for further explanation. Take tylenol and tramadol as needed for pain control over the next few days. Make sure only to drink a liquid diet for the next 2 days and then transition over to a full regular diet. We are sending tramadol to your local pharmacy. please make sure to go and pick it up. Come back to the ER if your pain worsens, you get a fever, start vomiting, or have any other new or worsening concerns. You need to schedule 3 doctor appointments moving forward. 1) Geoscience Specialist - Dr. Fowler. We have scheduled you an appointment for ThursdayDecember 06 at 3:00 PM at [address] [facility] on the 2nd floor. 2) PCP - Dr. Woody. Please schedule an appointment in the next 5 days. 3) [place] Regulator - Dr. Saavedra. Please schedule an appointment in the next week to establish care. Thank you for coming to the [facility] ER. We hope you feel better soon! Print Language: KHMER - Post Discharge Activity Forms/Work/School Notes: Back to Work
--- NOTE | 2018-12-02 12:50 | PDOC ---
Attending Attestation - HPI HPI: 12/02/18 14:16 53 year old female with past medical history of GERD, gastritis, PUD, and hepatitis C who presents to the ED after an episode of 8/10 left sided squeezing chest pain with associated shortness of breath, palpitations and left arm numbness that occurred while at rest this morning. Denies any associated diaphoresis, nausea, vomiting or abdominal pain. Denies any fever, chills or cough. Denies any changes in urination. - Physicial Exam PE: 12/02/18 14:17 Vitals: Triage Vital signs reviewed General Appearance: no acute distress, well nourished well developed Cardiac: Regular rate and rhythm, no murmurs, no rubs, no gallops Lungs: Clear to auscultation bilateral, good air movement bilaterally Abdomen: Soft, mild epigastric tenderness, no rebound, no guarding, nondistended, normal bowel sounds Extremities: Full range of motion to all extremities, no cyanosis, clubbing, or edema Skin: Warm and dry, no rashes or lesions, no petechiae Neuro: AOX3; Cranial Nerves 2-12 grossly intact, Strength intact to all extremities, Sensation intact to all extremities Psych: normal mood, normal affect - Medical Decision Making 12/02/18 14:19 Documentation prepared by Evelia Hou, acting as hospital medical biller for Corey Santillan MD. <Evelia Hou - Last Filed: 12/02/18 14:16> - Resident Resident Name: Siva Mcmullen - ED Attending Attestation I have performed the following: I have examined & evaluated the patient, The case was reviewed & discussed with the resident, I agree w/resident's findings & plan, Exceptions are as noted - Medical Decision Making 12/02/18 16:30 History and examination consistent with mild pancreatitis. We have arranged for gastroenterology follow-up on Thursday as well as cardiology follow-up. Her EKG was nonischemic her troponin was negative EKG demonstrates normal sinus rhythm no ST elevations no T-wave inversions Interpreted by me. Findings, the need for follow-up and strict return instructions discussed with patient. <Corey Santillan - Last Filed: 12/02/18 16:30>
[2018-12-02 12:53] LABS: BASO % 0.7 % (0-2.0); EOS % 2.6 % (0-4.5); HEMOGLOBIN 14.2 GM/dL (10.7-15.3); LYMPH % 47.9 % (8-40); MCH 31.1 pg (25.7-33.7); MCHC 34.5 g/dl (32.0-36.0); MEAN CELL VOLUME 90.3 fl (80-96); MEAN PLT VOLUME 7.9 fl (7.5-11.1); MONO % 8.9 % (3.8-10.2); NEUT % 39.9 % (42.8-82.8); PLATELET COUNT 273 K/MM3 (134-434); RBC 4.54 M/mm3 (3.60-5.2); RDW 13.6 % (11.6-15.6); WHITE BLOOD COUNT 3.6 K/mm3 (4.0-10.0)
[2018-12-02] MEDS ORDERED: MAG HYDROX/AL HYDROX/SIMETH -MYLANTA- ORAL SUSPENSION PO ONE (12:53)
[2018-12-02] MEDS ORDERED: SODIUM CHLORIDE 0.9% 500 ML INFUS.BAG IV ONE (12:54)
[2018-12-02 13:10] LABS: INR 0.91 (0.83-1.09); PROTHROMBIN TIME (PATIENT) 10.7 SEC (9.7-13.0)
[2018-12-02] MEDS ORDERED: MAG HYDROX/AL HYDROX/SIMETH 30 ML UNIT-DOSE CUP ONE (13:23)
[2018-12-02 13:39] LABS: ALBUMIN 3.4 g/dl (3.4-5.0); ALK PHOS 87 U/L (45-117); ANION GAP 6 MMOL/L (8-16); BILIRUBIN,TOTAL 0.2 mg/dL (0.2-1); BLOOD UREA NITROGEN 15 mg/dL (7-18); CALCIUM 8.4 mg/dL (8.5-10.1); CHLORIDE 108 mmol/L (98-107); CO2 26 mmol/L (21-32); CREATININE 0.5 mg/dL (0.55-1.3); GLUCOSE,RANDOM 94 mg/dL (74-106); LIPASE 615 U/L (73-393); MAGNESIUM 2.4 mg/dL (1.8-2.4); N-TERMINAL BNP 12.3 pg/ml (5-125); POTASSIUM 4.3 mmol/L (3.5-5.1); SGOT/AST 22 U/L (15-37); SGPT/ALT 25 U/L (13-61); SODIUM 140 mmol/L (136-145); TOT PROT 6.9 g/dl (6.4-8.2)
--- NOTE | 2018-12-03 11:58 | EKG ---
Test Reason : Blood Pressure : / mmHG Vent. Rate : 068 BPM Atrial Rate : 068 BPM P-R Int : 198 ms QRS Dur : 084 ms QT Int : 398 ms P-R-T Axes : 059 015 024 degrees QTc Int : 423 ms NORMAL SINUS RHYTHM NORMAL ECG WHEN COMPARED WITH ECG OF 02-MAR-2018 12:51, NO SIGNIFICANT CHANGE WAS FOUND Confirmed by ERNESTINA SCHULTZ MD ([id number]) on 12/03/2018 11:58:26 AM Referred By: Confirmed By:ERNESTINA SCHULTZ MD
== END 2018-12-02 16:13 | disposition home or self-care (01) ==
LOC: SUPCPDRO 11:53 → JER 11:53
PROC: 3E0337Z Introduction of Electrolytic and Water Balance Substance into Peripheral Vein, Percutaneous Approach (ICD-10-PCS; principal; 2018-12-02)
DX: K85.90 Acute pancreatitis without necrosis or infection, unspecified (principal); J45.909 Unspecified asthma, uncomplicated; K21.9 Gastro-esophageal reflux disease without esophagitis; B19.20 Unspecified viral hepatitis C without hepatic coma
CPT/HCPCS: 36415; 71046-TC-FY; 76705-TC; 80053; 83690; 83735; 83880; 84484; 85025; 85610; 93005; 93010; 99285-25

== ENCOUNTER 2020-06-09 03:50 | Emergency (ER) | payer BC, OTHER ==
[2020-06-09 04:08] VITALS: BP 140/75; PULSE 80; TEMP 98; BMI 33.5
[2020-06-09] MEDS ORDERED: ONDANSETRON 4 MG/2 ML VIAL IVPUSH ONE (04:13)
[2020-06-09] MEDS ORDERED: MAG HYDROX/AL HYDROX/SIMETH -MYLANTA- ORAL SUSPENSION PO ONE (04:14)
[2020-06-09] MEDS ORDERED: LIDOCAINE VISCOUS 2% ORAL/TOP 100 ML BOTTLE MM ONE (04:15)
[2020-06-09] MEDS ORDERED: SODIUM CHLORIDE 1,000 ML IV STA (04:15)
[2020-06-09] MEDS ORDERED: PANTOPRAZOLE SODIUM 40 MG VIAL IVPUSH ONE (04:15)
[2020-06-09] MEDS ORDERED: MAG HYDROX/AL HYDROX/SIMETH 30 ML UNIT-DOSE CUP ONE ×2 (04:20→04:21)
[2020-06-09] MEDS ORDERED: LIDOCAINE VISCOUS 2% ORAL/TOP 20 ML UNIT-DOSE CUP ONE (04:20)
[2020-06-09] MEDS ORDERED: PANTOPRAZOLE SODIUM 40 MG/100 ML BAG IVPB ONE (04:20)
--- NOTE | 2020-06-09 04:21 | PDOC ---
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 Pt prompted her to come into the ER because she is expected to report back to work this AM at 6 and she feels like she cannot go back ill as she is. 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 Pt has no other complants. She is nauseous and walked to the bathroom to vomit. - Physicial Exam PE: 06/09/20 04:30 Pt is afebrile Abd increased bowel sounds diffuse minimal pain heart RRR lungs CTAb no flank No edema of extremities Neuro intact. - Medical Decision Making 06/09/20 04:46 CBC is normal Pt will get hydration and meds in the ER 06/09/20 05:19 chem normal pt will be discharged home SHe is feeling better. Understands to return for fever or worsening symptoms. Discharge - Discharge Information Problems reviewed: Yes Clinical Impression/Diagnosis: Viral gastritis, Vomiting Condition: Improved Disposition: HOME - Follow up/Referral Referrals: Beto Miguel MD [Primary Care Provider] - - Patient Discharge Instructions - Post Discharge Activity
[2020-06-09 04:24] LABS: BASO % 0.5 % (0-2.0); EOS % 0.9 % (0-4.5); HEMATOCRIT 43.1 % (32.4-45.2); HEMOGLOBIN 14.5 GM/dL (10.7-15.3); LYMPH % 21.2 % (8-40); MCH 30.3 pg (25.7-33.7); MCHC 33.7 g/dl (32.0-36.0); MEAN CELL VOLUME 89.7 fl (80-96); MEAN PLT VOLUME 8.2 fl (7.5-11.1); MONO % 4.9 % (3.8-10.2); NEUT % 72.5 % (42.8-82.8); PLATELET COUNT 300 K/MM3 (134-434); RDW 13.7 % (11.6-15.6); WHITE BLOOD COUNT 8.3 K/mm3 (4.0-10.0)
--- NOTE | 2020-06-09 04:26 | PDOC ---
History of Present Illness - General Chief Complaint: Vomiting/Diarrhea Stated Complaint: VOMITING,DIARRHEA Time Seen by Provider: 06/09/20 03:55 - History of Present Illness Initial Comments: 06/09/20 04:20 54 yo female with pmh of Hep C (treated), GERD, gastritis presents to ED for nausea, vomitting and diarrhea since yesterday. Pt explains she has had seven episodes of nbnb emesis, and 10 episodes of nonbloody diarrhea. Pt explains she does not believe she ate anything different or any sick contacts. Pt does have epigastric pain that came after from vomiting she believes. Pt has taken antacid and loperamide but has not helped. She denies any fevers, chills, shortness of breath, dysuria, or urinary frequency. PMH: GERD, Gastritis, Hep C (treated) PSH: denies Meds: denies Allergies: cimetidine Social: denies smoking drugs or alcohol PCP: Dr. Miguel Past History - Medical History Allergies/Adverse Reactions: Allergies Allergy/AdvReac Type Severity Reaction Status Date / Time cimetidine [From Tagamet] Allergy Swelling Verified 06/09/20 04:03 cimetidine HCl [From Tagamet] Allergy Swelling Verified 06/09/20 04:03 Home Medications: Ambulatory Orders NK [No Known Home Medication] 12/02/18 Asthma: Yes COPD: No GI Disorders: Yes (hep c/gastritis) - Immunization History Immunization Up to Date: Yes - Psycho-Social/Smoking History Smoking History: Never smoked Have you smoked in the past 12 months: No - Substance Abuse Hx (Audit-C & DAST Scrn) How often the patient has a drink containing alcohol: Never Score: In Men: 4 or > Positive; In Women: 3 or > Positive: 0 Screen Result (Pos requires Nsg. Audit-10AR): Negative In the last yr the pt used illegal drug/Rx for NonMed reason: No Score: Yes response is considered Positive: 0 Screen Result (Positive result requires Nsg. DAST-10): Negative Review of Systems - Review of Systems Comments:: 06/09/20 04:24 GENERAL/CONSTITUTIONAL: No fever or chills. No weakness. HEAD, EYES, EARS, NOSE AND THROAT: No change in vision. No ear pain or discharge. No sore throat. CARDIOVASCULAR: No chest pain or shortness of breath RESPIRATORY: No cough, wheezing, or hemoptysis. GASTROINTESTINAL: Nausea vomitting and diarrhea GENITOURINARY: No dysuria, frequency, or change in urination. MUSCULOSKELETAL: No joint or muscle swelling or pain. No neck or back pain. SKIN: No rash NEUROLOGIC: No headache, vertigo, loss of consciousness, or change in strength/sensation. ENDOCRINE: Increased thirst. ALLERGIC/IMMUNOLOGIC: No hives or skin allergy. *Physical Exam - Vital Signs Last Vital Signs Temp Pulse Resp BP Pulse Ox 98.0 F 80 18 140/75 98 06/09/20 04:02 06/09/20 04:02 06/09/20 04:02 06/09/20 04:02 06/09/20 04:02 - Physical Exam 06/09/20 04:25 GENERAL: Awake, alert, and fully oriented, in moderate distress HEAD: No signs of trauma, normocephalic, atraumatic EYES: EOMI, sclera anicteric, conjunctiva clear ENT: Auricles normal inspection, hearing grossly normal, nares patent, NECK: Normal ROM, supple, no lymphadenopathy, JVD, or masses LUNGS: No distress, speaks full sentences, clear to auscultation bilaterally HEART: Regular rate and rhythm, normal S1 and S2, no murmurs, rubs or gallops, peripheral pulses normal and equal bilaterally. ABDOMEN: Normoactive bowel sounds in all four quadrants. Tender to palpation on epigastric area. EXTREMITIES : Normal inspection, Normal range of motion, no edema. No clubbing or cyanosis. NEUROLOGICAL: Cranial nerves II through XII grossly intact. Normal speech, SKIN: Warm, Dry, normal turgor, no rashes or lesions noted Heart Score/ECG Review - ECG Impressions Comment:: 06/09/20 04:42 Normal sinus rhythm at 68 bpm Normal NH, QRS and QT interval Normal axis No ST changes or acute ischemia ED Treatment Course - LABORATORY CBC & Chemistry Diagram: 06/09/20 04:15 06/09/20 04:15 Medical Decision Making - Medical Decision Making 06/09/20 04:26 54 yo female with pmh of gastritis, GERD, hep C presents to ED for N/V/D. Will get labs and based off labs may get imaging. Will rule out gastritis vs cholecystis, vs peptic ulcer, vs pancreatitis. Will also give nausea medication and reasses. 06/09/20 05:10 pt feels alot better and ready to go home. Will discharge home Discharge - Discharge Information Problems reviewed: Yes Clinical Impression/Diagnosis: Viral gastritis, Vomiting Condition: Improved Disposition: HOME - Follow up/Referral Referrals: Beto Miguel MD [Primary Care Provider] - - Patient Discharge Instructions Patient Printed Discharge Instructions: DI for Abdominal Pain-Adult Additional Instructions: You came to the ED for abdominal pain. This is most likely from a viral illness. At the ED we neetu labs, got an EKG, and gave you medication for the nausea. The labs showed no acute abnormalities. After giving the antinausea medication you stated you felt a lot better so we decided to discharge you home with follow up with your pcp within the next few days. If you have any worsening pain take tylenol for the pain 325mg-1000mg every 6 hours no more than 4000 mg in 24 hours. If you have any of the following please return to the ED: - not able to eat or drink anything by mouth - worsening abdominal pain - unable to pass gas or bowel movements - worsening chest pain or shortness of breath If you have an emergency please call for medical help right away. - Post Discharge Activity Work/Back to School Note: Back to Work
[2020-06-09 05:01] LABS: ALBUMIN 3.7 g/dl (3.4-5.0); ALK PHOS 96 U/L (45-117); ANION GAP 6 MMOL/L (8-16); BILIRUBIN,TOTAL 0.3 mg/dL (0.2-1); BLOOD UREA NITROGEN 10.8 mg/dL (7-18); CALCIUM 8.7 mg/dL (8.5-10.1); CHLORIDE 107 mmol/L (98-107); CO2 26 mmol/L (21-32); CREATININE 0.6 mg/dL (0.55-1.3); GLUCOSE,RANDOM 121 mg/dL (74-106); LIPASE 147 U/L (73-393); POTASSIUM 4.1 mmol/L (3.5-5.1); SGOT/AST 29 U/L (15-37); SGPT/ALT 24 U/L (13-61); SODIUM 138 mmol/L (136-145); TOT PROT 7.8 g/dl (6.4-8.2)
--- NOTE | 2020-06-09 10:47 | EKG ---
Test Reason : Blood Pressure : / mmHG Vent. Rate : 068 BPM Atrial Rate : 068 BPM P-R Int : 190 ms QRS Dur : 088 ms QT Int : 422 ms P-R-T Axes : 048 015 027 degrees QTc Int : 448 ms POOR DATA QUALITY, INTERPRETATION MAY BE ADVERSELY AFFECTED NORMAL SINUS RHYTHM POSSIBLE ANTERIOR INFARCT , AGE UNDETERMINED ABNORMAL ECG WHEN COMPARED WITH ECG OF 02-DEC-2018 12:01, NO SIGNIFICANT CHANGE WAS FOUND Confirmed by Karen Dawkins ([id number]) on 06/09/2020 10:47:10 AM Referred By: Confirmed By:Karen Dawkins
== END 2020-06-09 05:28 | disposition home or self-care (01) ==
LOC: JER 03:50
PROC: 3E033NZ Introduction of Analgesics, Hypnotics, Sedatives into Peripheral Vein, Percutaneous Approach (ICD-10-PCS; principal; 2020-06-09)
PROC: 3E033GC Introduction of Other Therapeutic Substance into Peripheral Vein, Percutaneous Approach (ICD-10-PCS; 2020-06-09)
PROC: 3E0337Z Introduction of Electrolytic and Water Balance Substance into Peripheral Vein, Percutaneous Approach (ICD-10-PCS; 2020-06-09)
DX: A08.4 Viral intestinal infection, unspecified (principal); R11.10 Vomiting, unspecified
CPT/HCPCS: 36415; 80053; 82550; 82553; 83690; 84484; 85025; 93005; 93010; 99285-25

== ENCOUNTER 2020-06-11 21:30 | Emergency (ER) | payer BC, OTHER ==
[2020-06-11 21:52] VITALS: BP 131/79; PULSE 73; TEMP 97.8; BMI 33.7
--- NOTE | 2020-06-11 21:52 | PDOC ---
Rapid Medical Evaluation Time Seen by Provider: 06/11/20 21:49 Medical Evaluation: Allergies Allergy/AdvReac Type Severity Reaction Status Date / Time cimetidine [From Tagamet] Allergy Swelling Verified 06/09/20 04:03 cimetidine HCl [From Tagamet] Allergy Swelling Verified 06/09/20 04:03 06/11/20 21:50 Pt presents for evaluation of blood in the stool for two days. States the blood was bright red and filled the toilet bowl. Exam: Defer to provider, EMILIO [id number] Orders: labs, IV Pt to proceed to the ER for further evaluation Discharge Disposition - Diagnosis Blood in stool - Referrals - Patient Instructions - Post Discharge Activity
--- NOTE | 2020-06-11 22:17 | PDOC ---
Attending Attestation - Resident Resident Name: Eligio Warren - ED Attending Attestation I have performed the following: I have examined & evaluated the patient, The case was reviewed & discussed with the resident, I agree w/resident's findings & plan - HPI HPI: 06/11/20 23:31 see resident hpi - Physicial Exam PE: 06/11/20 23:31 see resident exam - Medical Decision Making 06/11/20 23:34 54-year-old female with bright red blood per rectum x2 sent from urgent care for further evaluation Patient is well-appearing with no vomiting fever or abdominal pain, there is no abdominal tenderness on exam There were several nonthrombosed hemorrhoids noted on digital exam Patient's hemoglobin and hematocrit were stable She will be discharged home with follow-up, of note 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 You will need to have a colonoscopy done to identify the cause of the bleeding. Please talk to your primary care doctor about this. Return to the ER for increasing pain, chest pain, shortness of breath, vomiting, lightheadedness, passing out, abdominal pain, back pain, fevers or any other new, worsening or concerning symptoms. - Post Discharge Activity
--- NOTE | 2020-06-11 22:50 | PDOC ---
History of Present Illness <Arabella Reece - Last Filed: 06/11/20 22:57> - History of Present Illness Initial Comments: 06/11/20 22:41 54 yo f pmh of asthma and treated Hep C presents to ED for painless rectal bleeding that started yesterday. Pt was recently seen in the ER for nausea, vomiting and diarrhea which resolved one day ago. Pt explains that yesterday was making bowel movement and when she wiping saw blood on toilet paper and then also large amount of bright red blood in toilet. Pt then today had a few normal bowel movements without blood but then had another bowel movement in the afternoon where she then again had blood in the toilet. Pt went to who referred her to the ED. Pt denies any abdominal pain, any rectal pain, any straining, any constipation, diarrhea, nausea, or emesis. Pt also denies any chest pain, sob, lightheadedness or blurry vision, dysuria, or urinary frequency. Pt has had colonoscopy 2-[address] Farrell which was negative for any colon issue. PMH: Hep C, asthma PSH: liposuction (15 years ago) Allergies:cimetidine Social: denies smoking drugs or alcohol PCP: Dr. Pérez GI: Dr. Farrell <Eligio Warren - Last Filed: 06/13/20 02:51> - General Chief Complaint: Rectal Bleed Stated Complaint: RECTAL BLEEDING Time Seen by Provider: 06/11/20 21:49 Past History <Arabella Reece - Last Filed: 06/11/20 22:57> - Medical History Asthma: Yes COPD: No GI Disorders: Yes (hep c/gastritis) - Immunization History Immunization Up to Date: Yes - Psycho-Social/Smoking History Smoking History: Never smoked Have you smoked in the past 12 months: No - Substance Abuse Hx (Audit-C & DAST Scrn) How often the patient has a drink containing alcohol: Never Score: In Men: 4 or > Positive; In Women: 3 or > Positive: 0 Screen Result (Pos requires Nsg. Audit-10AR): Negative In the last yr the pt used illegal drug/Rx for NonMed reason: No Score: Yes response is considered Positive: 0 Screen Result (Positive result requires Nsg. DAST-10): Negative <Eligio Warren - Last Filed: 06/13/20 02:51> - Medical History Allergies/Adverse Reactions: Allergies Allergy/AdvReac Type Severity Reaction Status Date / Time cimetidine [From Tagamet] Allergy Swelling Verified 06/09/20 04:03 cimetidine HCl [From Tagamet] Allergy Swelling Verified 06/09/20 04:03 Home Medications: Ambulatory Orders NK [No Known Home Medication] 12/02/18 Review of Systems - Review of Systems Comments:: 06/11/20 22:50 GENERAL/CONSTITUTIONAL: No fever or chills. No weakness. HEAD, EYES, EARS, NOSE AND THROAT: No change in vision. No ear pain or discharge. No sore throat. CARDIOVASCULAR: No chest pain or shortness of breath RESPIRATORY: No cough, wheezing, or hemoptysis. GASTROINTESTINAL: No nausea, vomiting, diarrhea or constipation. Bright red blood in rectum and toilet GENITOURINARY: No dysuria, frequency, or change in urination. MUSCULOSKELETAL: No joint or muscle swelling or pain. No neck or back pain. SKIN: No rash NEUROLOGIC: No headache, vertigo, loss of consciousness, or change in strengt h/sensation. ENDOCRINE: No increased thirst. No abnormal weight change HEMATOLOGIC/LYMPHATIC: No anemia, easy bleeding, or history of blood clots. ALLERGIC/IMMUNOLOGIC: No hives or skin allergy. <Eligio Warren - Last Filed: 06/13/20 02:51> *Physical Exam - Vital Signs Last Vital Signs Temp Pulse Resp BP Pulse Ox 97.8 F 73 19 131/79 98 06/11/20 21:49 06/11/20 21:49 06/11/20 21:49 06/11/20 21:49 06/11/20 21:49 <Arabella Reece - Last Filed: 06/11/20 22:57> - Vital Signs Last Vital Signs Temp Pulse Resp BP Pulse Ox 97.8 F 73 19 131/79 98 06/11/20 21:49 06/11/20 21:49 06/11/20 21:49 06/11/20 21:49 06/11/20 21:49 - Physical Exam 06/11/20 23:08 GENERAL: Awake, alert, and fully oriented, in no acute distress HEAD: No signs of trauma, normocephalic, atraumatic EYES: PERRLA, EOMI, sclera anicteric, conjunctiva clear ENT: Auricles normal inspection, hearing grossly normal, nares patent, oropharynx clear without exudates. Moist mucosa NECK: Normal ROM, supple, no lymphadenopathy, JVD, or masses LUNGS: No distress, speaks full sentences, clear to auscultation bilaterally HEART: Regular rate and rhythm, normal S1 and S2, no murmurs, rubs or gallops, peripheral pulses normal and equal bilaterally. ABDOMEN: Soft, nontender, normoactive bowel sounds. No guarding, no rebound. No masses EXTREMITIES : Normal inspection, Normal range of motion, no edema. No clubbing or cyanosis. NEUROLOGICAL: Cranial nerves II through XII grossly intact. Normal speech, normal gait, no focal sensorimotor deficits SKIN: Warm, Dry, normal turgor, no rashes or lesions noted Rectal exam: pt has external hemorrhoid at 9 o clock position. Pt has internal mass on left aspect <Eligio Warren - Last Filed: 06/13/20 02:51> ED Treatment Course - LABORATORY CBC & Chemistry Diagram: 06/11/20 22:25 06/11/20 22:25 <Arabella Reece - Last Filed: 06/11/20 22:57> - LABORATORY CBC & Chemistry Diagram: 06/11/20 22:25 06/11/20 22:25 <Eligio Warren - Last Filed: 06/13/20 02:51> Medical Decision Making - Medical Decision Making 06/11/20 23:09 54 yo female with pmh Hep C and asthma presents to ED for painless rectal bleeding. On rectal exam felt internal hemorrhoid and seen external hemorrhoid nonthrombosed. Will get cbc, coags, cmp. Will monitor Hgb and if normal will discharge with GI follow up. 06/11/20 23:25 Pt CBC showed no anemia. Pt does have postive FOBT. Pt currently has no symptoms and wants to go home. Pt understands risk of GI malginancy and will call Dr. Fowler tomorrow for follow up. <Eligio Warren - Last Filed: 06/13/20 02:51> Discharge - Discharge Information Problems reviewed: Yes - Admission No <Arabella Reece - Last Filed: 06/11/20 22:57> - Discharge Information Problems reviewed: Yes <Eligio Warren - Last Filed: 06/13/20 02:51> - Discharge Information Clinical Impression/Diagnosis: Blood in stool Condition: Stable Disposition: HOME - Follow up/Referral Referrals: Beto Miguel MD [Primary Care Provider] - Alessio Fowler DO [Staff Physician] - - Patient Discharge Instructions Patient Printed Discharge Instructions: DI for Rectal Bleeding Additional Instructions: Follow up with your primary care doctor within 3 days for your ER visit, your care is not complete until you follow up. You will need to have a colonoscopy done to identify the cause of the bleeding. Please talk to your primary care doctor about this. Return to the ER for increasing pain, chest pain, shortness of breath, vomiting, lightheadedness, passing out, abdominal pain, back pain, fevers or any other new, worsening or concerning symptoms. - Post Discharge Activity
[2020-06-11 22:56] LABS: BASO % 0.4 % (0-2.0); EOS % 2.2 % (0-4.5); HEMATOCRIT 39.8 % (32.4-45.2); HEMOGLOBIN 13.1 GM/dL (10.7-15.3); LYMPH % 48.6 % (8-40); MCH 29.8 pg (25.7-33.7); MEAN CELL VOLUME 90.5 fl (80-96); MONO % 8.1 % (3.8-10.2); NEUT % 40.7 % (42.8-82.8); PLATELET COUNT 275 K/MM3 (134-434); RDW 13.8 % (11.6-15.6); WHITE BLOOD COUNT 4.3 K/mm3 (4.0-10.0)
[2020-06-11 23:11] LABS: INR 0.97 (0.83-1.09); PROTHROMBIN TIME (PATIENT) 11.5 SEC (9.7-13.0)
[2020-06-11 23:28] LABS: ALBUMIN 3.7 g/dl (3.4-5.0); BILIRUBIN,TOTAL 0.2 mg/dL (0.2-1); BLOOD UREA NITROGEN 11.5 mg/dL (7-18); CALCIUM 8.8 mg/dL (8.5-10.1); CREATININE 0.6 mg/dL (0.55-1.3); POTASSIUM 3.9 mmol/L (3.5-5.1); TOT PROT 7.4 g/dl (6.4-8.2)
== END 2020-06-11 23:37 | disposition home or self-care (01) ==
LOC: JER 21:30
DX: K92.1 Melena (principal)
CPT/HCPCS: 36415; 80053; 82272; 83605; 85025; 85610; 86850; 86900; 86901; 99283-25

== ENCOUNTER 2022-06-11 02:14 | Emergency (ER) | payer BC, OTHER ==
[2022-06-11 02:36] VITALS: BP 138/84; PULSE 97; RESP 19; TEMP 98.4; BMI 31.2
[2022-06-11] MEDS ORDERED: ACETAMINOPHEN 1000 MG/100 ML BAG IVPB ONE (03:08)
[2022-06-11] MEDS ORDERED: ONDANSETRON 4 MG/2 ML VIAL IVPUSH ONE (03:08)
[2022-06-11] MEDS ORDERED: LACTATED RINGERS SOLUTION 1000 ML INFUS.BAG IV ONE (03:10)
[2022-06-11] MEDS ORDERED: ACETAMINOPHEN INJECTION 100 ML IVPB ONE (03:24)
[2022-06-11] MEDS ORDERED: ONDANSETRON 4 MG/2 ML VIAL ONE (03:25)
[2022-06-11 03:51] LABS: PH,URINE 6.5 (5.0-8.0); URINE APPEARANCE CLEAR; URINE BILIRUBIN NEGATIVE (NEGATIVE); URINE COLOR YELLOW; URINE GLUCOSE (UA) NEGATIVE (NEGATIVE); URINE KETONE NEGATIVE (NEGATIVE); URINE LEUK ESTERASE NEGATIVE (NEGATIVE); URINE NITRITE NEGATIVE (NEGATIVE); URINE PROTEIN NEGATIVE (NEGATIVE); URINE UROBILINOGEN 0.2 mg/dL (0.2-1.0)
[2022-06-11 04:17] LABS: CALCIUM 9.3 mg/dL (8.5-10.1)
[2022-06-11 04:18] LABS: ALBUMIN 3.5 g/dl (3.4-5.0); BLOOD UREA NITROGEN 18.6 mg/dL (7-18)
[2022-06-11 04:20] LABS: CREATININE 0.9 mg/dL (0.55-1.3)
[2022-06-11 04:22] LABS: BILIRUBIN,TOTAL 0.2 mg/dL (0.2-1); TOT PROT 7.4 g/dl (6.4-8.2)
[2022-06-11 05:10] LABS: BASO % 0.3 % (0-2.0); EOS % 0.5 % (0-4.5); HEMATOCRIT 37.4 % (32.4-45.2); HEMOGLOBIN 12.6 GM/dL (10.7-15.3); LYMPH % 10.9 % (8-40); MCH 29.8 pg (25.7-33.7); MCHC 33.7 g/dl (32.0-36.0); MEAN CELL VOLUME 88.5 fl (80-96); MEAN PLT VOLUME 7.8 fl (7.5-11.1); MONO % 7.7 % (3.8-10.2); NEUT % 80.6 % (42.8-82.8); PLATELET COUNT 310 10^3/uL (134-434); RBC 4.23 M/mm3 (3.60-5.2); RDW 13.5 % (11.6-15.6); WHITE BLOOD COUNT 9.4 K/mm3 (4.0-10.0)
[2022-06-11] MEDS ORDERED: KETOROLAC TROMETHAMINE 15 MG/ML VIAL IVPUSH ONE (06:16)
[2022-06-11] MEDS ORDERED: KETOROLAC TROMETHAMINE 15 MG/ML VIAL ONE (06:18)
[2022-06-11] MEDS ORDERED: SUCRALFATE 1 GM/10 ML UNIT DOSE CUPS PO ONE (06:19)
[2022-06-11] MEDS ORDERED: FAMOTIDINE 20 MG TABLET PO ONE (06:22)
[2022-06-11] MEDS ORDERED: SUCRALFATE 1 GM TABLET (FP) ONE (06:33)
[2022-06-11] MEDS ORDERED: FAMOTIDINE 20 MG TABLET ONE (06:33)
== END 2022-06-11 06:58 | disposition home or self-care (01) ==
LOC: JER 02:14
PROC: 3E0233Z Introduction of Anti-inflammatory into Muscle, Percutaneous Approach (ICD-10-PCS; principal; 2022-06-11)
PROC: 3E033NZ Introduction of Analgesics, Hypnotics, Sedatives into Peripheral Vein, Percutaneous Approach (ICD-10-PCS; 2022-06-11)
PROC: 3E033GC Introduction of Other Therapeutic Substance into Peripheral Vein, Percutaneous Approach (ICD-10-PCS; 2022-06-11)
DX: R11.10 Vomiting, unspecified (principal)
CPT/HCPCS: 0241U-QW; 36415; 74177-TC; 80053; 81003; 83690; 84484; 85025; 87086; 93005; 93010; 99285-25

== ENCOUNTER 2024-04-04 20:15 | Inpatient (IN) | payer BC, OTHER ==
[2024-04-04] MEDS ORDERED: ACETAMINOPHEN INJECTION 100 ML IVPB ONE (21:21)
[2024-04-04] MEDS ORDERED: MAG HYDROX/AL HYDROX/SIMETH 30 ML UNIT-DOSE CUP ONE (21:21)
[2024-04-04] MEDS ORDERED: ONDANSETRON 4 MG/2 ML VIAL ONE (21:21)
[2024-04-04] MEDS: MAG HYDROX/AL HYDROX/SIMETH 30 ML UNIT-DOSE CUP PO ONE (21:48)
[2024-04-04] MEDS: ACETAMINOPHEN 1000 MG/100 ML BAG IVPB ONE (21:48)
[2024-04-04] MEDS: ONDANSETRON 4 MG/2 ML VIAL IVPUSH ONE (21:48)
[2024-04-04] MEDS ORDERED: SUCRALFATE 1 GM TABLET (FP) ONE (22:11)
[2024-04-04 22:15] LABS: CHLORIDE 105 mmol/L (98-107); INR 0.95 (0.83-1.09); PROTHROMBIN TIME (PATIENT) 10.8 SEC (9.7-13.0); SODIUM 134 mmol/L (136-145)
[2024-04-04 22:17] LABS: CALCIUM 8.7 mg/dL (8.5-10.1)
[2024-04-04 22:18] LABS: ALBUMIN 3.3 g/dl (3.4-5.0); BLOOD UREA NITROGEN 16.4 mg/dL (7-18); CO2 26 mmol/L (21-32); GLUCOSE,RANDOM 144 mg/dL (74-106); MAGNESIUM 2.4 mg/dL (1.8-2.4)
[2024-04-04 22:21] LABS: CREATININE 0.7 mg/dL (0.55-1.3); SGOT/AST 94 U/L (15-37)
[2024-04-04 22:22] LABS: BILIRUBIN,TOTAL 0.6 mg/dL (0.2-1); TOT PROT 7.7 g/dl (6.4-8.2)
[2024-04-04 22:24] LABS: ALK PHOS 73 U/L (45-117)
[2024-04-04 22:25] LABS: ANION GAP 2 mmol/L (4-13); POTASSIUM 6.2 mmol/L (3.5-5.1); SGPT/ALT 36 U/L (13-61)
[2024-04-04 23:04] LABS: HEMATOCRIT 42.2 % (32.4-45.2); HEMOGLOBIN 14.3 GM/dL (10.7-15.3); MCH 29.7 pg (25.7-33.7); MCHC 33.8 g/dl (32.0-36.0); MEAN PLT VOLUME 7.6 fl (7.5-11.1); PLATELET COUNT 293 10^3/uL (134-434); RBC 4.79 M/mm3 (3.60-5.2); RDW 13.9 % (11.6-15.6); WHITE BLOOD COUNT 7.2 K/mm3 (4.0-10.0)
[2024-04-04] MEDS: SUCRALFATE 1 GM/10 ML UNIT DOSE CUPS PO ONE (23:19)
[2024-04-04 23:24] LABS: POTASSIUM 3.9 mmol/L (3.5-5.1)
[2024-04-04 23:26] LABS: BLOOD UREA NITROGEN 14.4 mg/dL (7-18); CALCIUM 8.4 mg/dL (8.5-10.1)
[2024-04-04 23:30] LABS: CREATININE 0.6 mg/dL (0.55-1.3)
[2024-04-05] LABS: ANISOCYTOSIS 0; MACROCYTOSIS 0
[2024-04-05] MEDS: LACTATED RINGERS SOLUTION 1000 ML INFUS.BAG IV ONE (00:36)
[2024-04-05] MEDS: FAMOTIDINE 20 MG/50 ML IVPB 20 MG/50 ML MG IVPB ONE (00:37)
[2024-04-05] MEDS: LACTATED RINGERS SOLUTION 1,000 ML/1,000 ML INFUS.BAG IV SCH (04:21)
[2024-04-05 05:16] VITALS: BP 153/73; PULSE 98; RESP 18; TEMP 99; BMI 32.7
[2024-04-05] MEDS: ACETAMINOPHEN 500 MG TABLET (FP) PO PRN (06:45)
[2024-04-05 07:54] LABS: HEMATOCRIT 38.5 % (32.4-45.2); HEMOGLOBIN 13.1 GM/dL (10.7-15.3); MCH 30.3 pg (25.7-33.7); MEAN CELL VOLUME 89.2 fl (80-96); MEAN PLT VOLUME 7.9 fl (7.5-11.1); PLATELET COUNT 263 10^3/uL (134-434); RBC 4.32 M/mm3 (3.60-5.2); RDW 14.1 % (11.6-15.6); WHITE BLOOD COUNT 4.9 K/mm3 (4.0-10.0)
[2024-04-05 08:21] LABS: POTASSIUM 3.5 mmol/L (3.5-5.1)
[2024-04-05 08:24] LABS: CALCIUM 8.3 mg/dL (8.5-10.1)
[2024-04-05 08:25] LABS: ALBUMIN 3.2 g/dl (3.4-5.0); MAGNESIUM 2.3 mg/dL (1.8-2.4)
[2024-04-05 08:28] LABS: CREATININE 0.5 mg/dL (0.55-1.3); PHOSPHOROUS 2.7 mg/dL (2.5-4.9)
[2024-04-05 08:29] LABS: BILIRUBIN,TOTAL 0.4 mg/dL (0.2-1)
[2024-04-05 08:30] LABS: TOT PROT 6.5 g/dl (6.4-8.2)
[2024-04-05] MEDS ORDERED: ONDANSETRON 4 MG/2 ML VIAL IVPUSH PRN (08:34)
[2024-04-05] MEDS: LIDOCAINE 5% TOPICAL PATCH TP ONE (09:43)
[2024-04-05] MEDS: ENOXAPARIN NA (PORCINE) 40 MG/0.4 ML DISP.SYRIN SQ SCH (09:44)
[2024-04-05] MEDS ORDERED: LIDOCAINE PATCH REMOVAL MC SCH (22:00)
== END 2024-04-05 13:23 | disposition home or self-care (01) | DRG 313 ==
LOC: JER 20:15 → JERBED 04-05 00:49 → J8W 04-05 04:53
PROVIDERS: ADMIT Internal Medicine; ATTEND Nurse Practitioner Family
DX: R07.89 Other chest pain (principal); K56.7 Ileus, unspecified; I10 Essential (primary) hypertension; E11.9 Type 2 diabetes mellitus without complications; E78.5 Hyperlipidemia, unspecified; R10.31 Right lower quadrant pain
CPT/HCPCS: 36415; 71045-TC-FY; 74177-TC; 76705-TC; 80048; 80053; 83605; 83690; 83735; 84100; 84478; 84484; 85025; 85027; 85610; 85730; 99285-25; J0131; Q9967